=== PATIENT | male | born 1975 | race Caucasian/White ===

== ENCOUNTER 2025-04-27 21:55 | Inpatient (IN) | payer MEDICAID ==
[~2025-04-27] VITALS: Ht 152.4 cm; Wt 51.3 kg
[~2025-04-27 21:55] MED LIST: ALBU18HF2; ATROV IH; BUDE1AMP2; CEPH500T MT; CHLO473M11; FAMO20TA8 PO; HYDR-4001 PO; KEPPSOL GT; LORA-250; METO25TA6 PO; ONDA4TAB50 PO; SALS500T19 PO; SODI100047 MT
[2025-04-27 22:15] VITALS: PULSE 86; RESP 40; O2SAT 98
[2025-04-27] MEDS: IPRATROPIUM BROMIDE (0.02%) 0.5MG/2.5ML NEB HHN ONE (22:30)
[2025-04-27] MEDS: ALBUTEROL (0.083%) 2.5MG/3ML NEB HHN ONE (22:30)
[2025-04-27 22:46] LABS: BASOPHILS % 0.3 % (0.0-2.0); EOSINOPHILS % 3.2 % (0.0-5.0); HEMATOCRIT. 42.2 % (42.0-52.0); HEMOGLOBIN. 13.6 g/dL (14.0-18.0); LYMPHOCYTES % 16.6 % (20.0-50.0); MEAN PLATELET VOLUME 8.2 fl (7.4-10.4); MONOCYTES % 7.4 % (2.0-8.0); NEUTROPHILS % 72.5 % (40.0-76.0); PLATELET 344 x1000/uL (130-400); RED BLOOD CELL COUNT 4.41 mill/uL (4.7-6.1); RED CELL DISTRIBUTION WIDTH 14.4 % (11.6-14.6)
[2025-04-27] MEDS: PROPOFOL 10MG/ML 100ML 100 ML IV ONE (22:46)
[2025-04-27] MEDS: ONDANSETRON HCL 4MG/2ML INJ IV ONE (22:47)
[2025-04-27] MEDS: SODIUM CHLORIDE 0.9% 1,000 ML IV ONE (22:47)
[2025-04-27] MEDS: MORPHINE SULFATE 4 MG/ML INJ (FOR IV/IM USE) IV ONE (22:47)
[2025-04-27] MEDS: SUCCINYLCHOLINE CHLORIDE 200MG/10ML IV ONE (22:48)
[2025-04-27 22:59] LABS: CREATININE 0.5 mg/dL (0.6-1.3); UREA NITROGEN BLOOD 12 mg/dL (9-23)
[2025-04-27 23:01] LABS: TROPONIN I HIGH SENSITIVITY < 4 ng/L (3.0-53)
[2025-04-28] VITALS (81 sets, daily range): BP systolic 89–127; BP diastolic 66–106; PULSE 70–111; RESP 11–33; TEMP 36.4–37.1; O2SAT 97–100
[2025-04-28 00:39] LABS: BG BASE EXCESS -2.0 mmol/L (-2.0-3.0); BG CARBOXYHEMOGLOBIN 0.9 % (0.5-1.5); BG DEOXYHEMOGLOBIN 0.4 % (0.0-5.0); BG FRACTION INSPIRED OXYGEN 70; BG HCO3 ACT 20.3 mmol/L (21.0-28.0); BG METHEMOGLOBIN 0.1 % (0.5-1.5); BG OXYGEN SATURATION 99.6 % (94.0-98.0); BG OXYHEMOGLOBIN 98.6 % (94.0-98.0); BG PCO2 28.9 mmHg (35.0-48.0); BG PEEP (cmH2O) 5.0 cmH2O; BG PH 7.465 (7.350-7.450); BG PO2 203.0 mmHg (83.0-108.0); BG SAMPLE SITE RIGHT RADIAL; BG TOTAL HEMOGLOBIN 15.1 g/dL (13.5-17.5); BG TOTAL RESPIRATORY RATE 20 b/min; BG VENT MODE VENT - P/C; BG VENT RATE 20.0 set
[2025-04-28] MEDS ORDERED: IOHEXOL-300 100 ML BOTTLE ONE (03:30)
[2025-04-28] MEDS: IPRATROPIUM BROMIDE (0.02%) 0.5MG/2.5ML NEB HHN NR (03:46)
[2025-04-28] MEDS: ALBUTEROL (0.083%) 2.5MG/3ML NEB HHN NR (03:46)
[2025-04-28 05:50] LABS: HEMATOCRIT. 38.2 % (42.0-52.0); HEMOGLOBIN. 12.7 g/dL (14.0-18.0); MEAN PLATELET VOLUME 8.3 fl (7.4-10.4); PLATELET 241 x1000/uL (130-400); RED BLOOD CELL COUNT 4.02 mill/uL (4.7-6.1); RED CELL DISTRIBUTION WIDTH 14.1 % (11.6-14.6)
[2025-04-28 06:13] LABS: CREATININE 0.5 mg/dL (0.6-1.3); UREA NITROGEN BLOOD 17 mg/dL (9-23)
[2025-04-28] MEDS: PANTOPRAZOLE 40MG DR TABLET PO SCH (06:14)
[2025-04-28 06:15] LABS: PHOSPHORUS 3.4 mg/dL (2.5-4.9)
[2025-04-28] MEDS: PROPOFOL 10MG/ML 100ML 100 ML IV PRN (06:15)
[2025-04-28] MEDS: PIPERACILLIN/TAZO 3.375G/50ML IV SCH (08:00)
[2025-04-28] MEDS ORDERED: PIPERACILLIN/TAZO 3.375G/50ML IV SCH (09:00)
[2025-04-28] MEDS: ENOXAPARIN 40MG/0.4ML SYR SUBCUT SCH (09:06)
[2025-04-28] MEDS: VANCOMYCIN 1000MG/250ML 250 ML IV SCH (09:06)
[2025-04-28 10:09] LABS: CLARITY URINE CLOUDY (CLEAR); COLOR URINE YELLOW (YELLOW); GLUCOSE URINE NEGATIVE (NEGATIVE); KETONES URINE NEGATIVE (NEGATIVE); LEUKOCYTE ESTERASE URINE NEGATIVE (NEGATIVE); NITRITE URINE NEGATIVE (NEGATIVE); OCCULT BLOOD URINE NEGATIVE (NEGATIVE); PH URINE 7.0 (4.5-8.0); PROTEIN URINE TRACE (NEGATIVE); SPECIFIC GRAVITY URINE 1.058 (1.005-1.030); UROBILINOGEN URINE 1.0 E.U./dL (0.2-1.0)
[2025-04-28] MEDS: SODIUM ZIRCONIUM CYCLOSILICATE 10GM/PACKET GT NR (10:45)
[2025-04-28 11:14] LABS: BACTERIA URINE 4+; MUCUS URINE TRACE /lpf (NONE/TRACE); SQUAMOUS EPITHELIAL CELL URINE 1+ /lpf (RARE/1+)
[2025-04-28 11:15] LABS: RBC URINE NONE SEEN /hpf (0-2)
[2025-04-28 11:32] LABS: BAND% 12.0 % (1.0-6.0); LYMPHOCYTES % MANUAL 2.0 % (20.0-50.0); MONOCYTES % MANUAL 3.0 % (2.0-8.0); NEUTROPHILS % MANUAL 83.0 % (45.0-75.0); PLATELET ESTIMATE NORMAL
[2025-04-28] MEDS ORDERED: PIPERACILLIN/TAZO 3.375G/50ML 50 ML IV SCH (12:00)
[2025-04-28] MEDS: IPRATROPIUM/ALBUTEROL 0.5-3(2.5)MG/3ML NEB HHN SCH (14:54)
[2025-04-28] MEDS: VANCOMYCIN 750MG PREMIX 150 ML IV SCH (21:21)
[2025-04-29] VITALS (68 sets, daily range): BP systolic 92–142; BP diastolic 42–106; PULSE 97–128; RESP 12–27; TEMP 36.7–36.9; O2SAT 94–100
[2025-04-29 05:23] LABS: BASOPHILS % 0.5 % (0.0-2.0); EOSINOPHILS % 1.2 % (0.0-5.0); HEMATOCRIT. 33.3 % (42.0-52.0); HEMOGLOBIN. 11.1 g/dL (14.0-18.0); LYMPHOCYTES % 8.1 % (20.0-50.0); MEAN PLATELET VOLUME 8.7 fl (7.4-10.4); MONOCYTES % 6.8 % (2.0-8.0); NEUTROPHILS % 83.4 % (40.0-76.0); PLATELET 256 x1000/uL (130-400); RED BLOOD CELL COUNT 3.52 mill/uL (4.7-6.1); RED CELL DISTRIBUTION WIDTH 14.7 % (11.6-14.6)
[2025-04-29 05:41] LABS: CREATININE 0.5 mg/dL (0.6-1.3); TRIGLYCERIDE 92 mg/dL (0-150); UREA NITROGEN BLOOD 11 mg/dL (9-23)
[2025-04-29] MEDS: PROPOFOL 10MG/ML 100ML 100 ML IV PRN (06:11)
[2025-04-29] MEDS ORDERED: LIDOCAINE HCL/EPINEPHRINE 1%-EPI 1:100,000 20ML VIAL ONE (07:31)
[2025-04-29] MEDS ORDERED: ROCURONIUM BROMIDE 10MG/ML VIAL 5ML IV ONE (08:57)
[2025-04-29] MEDS ORDERED: PROPOFOL 200MG/20ML VIAL IV ONE (08:58)
[2025-04-29] MEDS ORDERED: FENTANYL CITRATE/PF 50MCG/ML 2ML VIAL ONE (08:58)
[2025-04-29] MEDS: KCL 20MEQ/100ML PREMIX 100 ML IV NR (09:00)
[2025-04-29] MEDS ORDERED: ONDANSETRON HCL 4MG/2ML INJ ONE (13:50)
[2025-04-29] MEDS ORDERED: NALOXONE HCL 0.4MG/ML VIAL IV PRN (20:30)
[2025-04-30] VITALS (104 sets, daily range): BP systolic 103–142; BP diastolic 71–99; PULSE 71–128; RESP 12–33; TEMP 36.5–38.4; O2SAT 91–100
[2025-04-30] MEDS: HYDROMORPHONE HCL/PF 2MG/ML INJ IV PRN (01:33)
[2025-04-30 05:47] LABS: BASOPHILS % 0.6 % (0.0-2.0); EOSINOPHILS % 3.1 % (0.0-5.0); HEMATOCRIT. 32.5 % (42.0-52.0); HEMOGLOBIN. 10.9 g/dL (14.0-18.0); LYMPHOCYTES % 9.2 % (20.0-50.0); MEAN PLATELET VOLUME 8.1 fl (7.4-10.4); MONOCYTES % 5.4 % (2.0-8.0); NEUTROPHILS % 81.7 % (40.0-76.0); PLATELET 289 x1000/uL (130-400); RED BLOOD CELL COUNT 3.44 mill/uL (4.7-6.1); RED CELL DISTRIBUTION WIDTH 15.1 % (11.6-14.6)
[2025-04-30 05:53] LABS: CREATININE 0.5 mg/dL (0.6-1.3); UREA NITROGEN BLOOD 10 mg/dL (9-23)
[2025-04-30 05:55] LABS: PHOSPHORUS 3.3 mg/dL (2.5-4.9)
[2025-04-30] MEDS ORDERED: DEXTROSE 50% WATER 50ML SYRINGE IV PRN (06:15)
[2025-04-30] MEDS: POTASSIUM CHLORIDE 20MEQ/PACKET GT NR (06:25)
[2025-04-30] MEDS ORDERED: INSULIN LISPRO 100 UNITS/ML SUBCUT SCH (07:00)
[2025-04-30] MEDS: ACETAMINOPHEN 650MG/20.3ML UDC GT PRN (10:57)
[2025-04-30] MEDS: BLOOD SUGAR DIAGNOSTIC STRIP TEST SCH (11:14)
[2025-04-30] MEDS: INSULIN LISPRO 100 UNITS/ML SUBCUT SCH (11:31)
[2025-04-30] MEDS: METHYLPREDNISOLONE SOD SUCC 40MG/ML (ACT-O-VIAL) IV SCH (14:12)
[2025-04-30] MEDS: ACETYLCYSTEINE 200MG/ML 20% VIAL 4ML INH SCH (16:52)
[2025-04-30] MEDS: PROPOFOL 10MG/ML 100ML 100 ML IV PRN (18:35)
[2025-05-01] VITALS (99 sets, daily range): BP systolic 99–149; BP diastolic 68–101; PULSE 78–123; RESP 13–33; TEMP 36.6–37.3; O2SAT 87–100
[2025-05-01 05:31] LABS: HEMATOCRIT. 30.0 % (42.0-52.0); HEMOGLOBIN. 10.2 g/dL (14.0-18.0); MEAN PLATELET VOLUME 8.2 fl (7.4-10.4); PLATELET 291 x1000/uL (130-400); RED BLOOD CELL COUNT 3.19 mill/uL (4.7-6.1); RED CELL DISTRIBUTION WIDTH 14.6 % (11.6-14.6)
[2025-05-01 05:43] LABS: CREATININE 0.4 mg/dL (0.6-1.3); UREA NITROGEN BLOOD 10 mg/dL (9-23)
[2025-05-01 05:45] LABS: PHOSPHORUS 2.9 mg/dL (2.5-4.9)
[2025-05-01] MEDS ORDERED: PROPOFOL 10MG/ML 100ML 100 ML IV PRN (05:45)
[2025-05-01 13:48] LABS: BG BASE EXCESS -1.3 mmol/L (-2.0-3.0); BG CARBOXYHEMOGLOBIN 0.3 % (0.5-1.5); BG DEOXYHEMOGLOBIN 0.7 % (0.0-5.0); BG FRACTION INSPIRED OXYGEN 40; BG HCO3 ACT 21.7 mmol/L (21.0-28.0); BG METHEMOGLOBIN 0.3 % (0.5-1.5); BG OXYGEN SATURATION 99.3 % (94.0-98.0); BG OXYHEMOGLOBIN 98.7 % (94.0-98.0); BG PCO2 31.0 mmHg (35.0-48.0); BG PEEP (cmH2O) 5.0 cmH2O; BG PH 7.463 (7.350-7.450); BG PO2 148.6 mmHg (83.0-108.0); BG SAMPLE SITE RIGHT RADIAL; BG TOTAL HEMOGLOBIN 11.9 g/dL (13.5-17.5); BG VENT MODE VENT - CPAP
[2025-05-01] MEDS: MEROPENEM 1G/100ML 100 ML IV SCH (14:17)
[2025-05-01] MEDS ORDERED: NALOXONE HCL 0.4MG/ML VIAL IV PRN (16:45)
[2025-05-01] MEDS: GUAIFENESIN 200MG/10ML SUGAR FREE UDC PO SCH (18:00)
[2025-05-01] MEDS: IPRATROPIUM/ALBUTEROL 0.5-3(2.5)MG/3ML NEB HHN SCH (20:00)
[2025-05-01 22:02] LABS: LYMPHOCYTES % MANUAL 4.0 % (20.0-50.0); MONOCYTES % MANUAL 4.0 % (2.0-8.0); NEUTROPHILS % MANUAL 92.0 % (45.0-75.0); PLATELET ESTIMATE NORMAL
[2025-05-02] VITALS (22 sets, daily range): BP systolic 106–125; BP diastolic 70–94; PULSE 86–108; RESP 17–31; TEMP 36.5–36.8; O2SAT 9–100
[2025-05-02 12:04] LABS: BASOPHILS % 0.3 % (0.0-2.0); EOSINOPHILS % 2.4 % (0.0-5.0); HEMATOCRIT. 33.9 % (42.0-52.0); HEMOGLOBIN. 11.3 g/dL (14.0-18.0); LYMPHOCYTES % 9.2 % (20.0-50.0); MEAN PLATELET VOLUME 8.1 fl (7.4-10.4); MONOCYTES % 10.0 % (2.0-8.0); NEUTROPHILS % 78.1 % (40.0-76.0); PLATELET 322 x1000/uL (130-400); RED BLOOD CELL COUNT 3.63 mill/uL (4.7-6.1); RED CELL DISTRIBUTION WIDTH 14.6 % (11.6-14.6)
[2025-05-02 12:24] LABS: CREATININE 0.4 mg/dL (0.6-1.3); UREA NITROGEN BLOOD 13 mg/dL (9-23)
[2025-05-02] MEDS: LIDOCAINE HCL 1% 20ML VIAL INFIL NR (16:04)
[2025-05-03] VITALS (18 sets, daily range): BP systolic 100–126; BP diastolic 56–86; PULSE 100–133; RESP 22–35; TEMP 37.2–37.9; O2SAT 93–100
[2025-05-03 07:22] LABS: CREATININE 0.4 mg/dL (0.6-1.3); UREA NITROGEN BLOOD 18 mg/dL (9-23)
[2025-05-03 07:34] LABS: BASOPHILS % 0.5 % (0.0-2.0); EOSINOPHILS % 4.3 % (0.0-5.0); HEMATOCRIT. 34.7 % (42.0-52.0); HEMOGLOBIN. 11.9 g/dL (14.0-18.0); LYMPHOCYTES % 7.6 % (20.0-50.0); MEAN PLATELET VOLUME 8.1 fl (7.4-10.4); MONOCYTES % 10.4 % (2.0-8.0); NEUTROPHILS % 77.2 % (40.0-76.0); PLATELET 335 x1000/uL (130-400); RED BLOOD CELL COUNT 3.74 mill/uL (4.7-6.1); RED CELL DISTRIBUTION WIDTH 14.6 % (11.6-14.6)
[2025-05-03 11:09] LABS: BG BASE EXCESS -1.0 mmol/L (-2.0-3.0); BG CARBOXYHEMOGLOBIN 0.6 % (0.5-1.5); BG DEOXYHEMOGLOBIN 1.0 % (0.0-5.0); BG FLOW(L/min) 10.00 L/min; BG FRACTION INSPIRED OXYGEN 40; BG HCO3 ACT 21.1 mmol/L (21.0-28.0); BG METHEMOGLOBIN 0.1 % (0.5-1.5); BG OXYGEN SATURATION 99.0 % (94.0-98.0); BG OXYHEMOGLOBIN 98.3 % (94.0-98.0); BG PCO2 28.0 mmHg (35.0-48.0); BG PH 7.495 (7.350-7.450); BG PO2 134.5 mmHg (83.0-108.0); BG SAMPLE SITE RIGHT BRACHIAL; BG TOTAL HEMOGLOBIN 13.1 g/dL (13.5-17.5); BG VENT MODE T PIECE
[2025-05-03] MEDS ORDERED: SODIUM CHLORIDE 0.9% 500 ML IV NR (15:30)
[2025-05-03] MEDS ORDERED: LEVETIRACETAM 1,000MG in NACL 100ML PREMIX IV SCH (21:00)
[2025-05-03] MEDS: LEVETIRACETAM 1000MG PREMIX 100 ML IV SCH (21:16)
[2025-05-03] MEDS: SULFAMETHOXAZOLE/TRIMETHOPRIM 200-40 MG/5ML 5ML ORAL SYR GT SCH (21:37)
[2025-05-04] VITALS (19 sets, daily range): BP systolic 83–130; BP diastolic 54–85; PULSE 79–120; RESP 16–29; TEMP 31.8–37.6; O2SAT 93–100
[2025-05-04] MEDS ORDERED: SODIUM CHLORIDE 0.9% 500 ML IV NR (15:30)
[2025-05-05] VITALS (18 sets, daily range): BP systolic 98–127; BP diastolic 65–77; PULSE 83–114; RESP 15–34; TEMP 36.4–37.9; O2SAT 92–100
[2025-05-06] VITALS (17 sets, daily range): BP systolic 104–126; BP diastolic 61–80; PULSE 88–120; RESP 17–36; TEMP 36.4–37.4; O2SAT 96–100
[2025-05-06 07:28] LABS: BASOPHILS % 0.6 % (0.0-2.0); EOSINOPHILS % 2.4 % (0.0-5.0); HEMATOCRIT. 35.3 % (42.0-52.0); HEMOGLOBIN. 11.9 g/dL (14.0-18.0); LYMPHOCYTES % 12.2 % (20.0-50.0); MEAN PLATELET VOLUME 7.8 fl (7.4-10.4); MONOCYTES % 11.8 % (2.0-8.0); NEUTROPHILS % 73.0 % (40.0-76.0); PLATELET 360 x1000/uL (130-400); RED BLOOD CELL COUNT 3.79 mill/uL (4.7-6.1); RED CELL DISTRIBUTION WIDTH 14.8 % (11.6-14.6)
[2025-05-06 07:47] LABS: CREATININE 0.6 mg/dL (0.6-1.3)
[2025-05-06 07:48] LABS: UREA NITROGEN BLOOD 12 mg/dL (9-23)
[2025-05-06] MEDS ORDERED: SULF1TAB47 MT (11:16)
[2025-05-06 15:12] LABS: TRIGLYCERIDE 105.0 mg/dL (0-150)
[2025-05-06 15:13] LABS: LDL CHOLESTEROL 59.0 mg/dL (5-100)
[2025-05-07] VITALS (16 sets, daily range): BP systolic 109–133; BP diastolic 69–81; PULSE 84–108; RESP 18–25; TEMP 37–37.7; O2SAT 93–100
[2025-05-07 06:03] LABS: CREATININE 0.6 mg/dL (0.6-1.3); UREA NITROGEN BLOOD 9 mg/dL (9-23)
[2025-05-07 10:15] LABS: BASOPHILS % 0.5 % (0.0-2.0); EOSINOPHILS % 3.9 % (0.0-5.0); HEMATOCRIT. 36.3 % (42.0-52.0); HEMOGLOBIN. 12.1 g/dL (14.0-18.0); LYMPHOCYTES % 16.6 % (20.0-50.0); MEAN PLATELET VOLUME 7.9 fl (7.4-10.4); MONOCYTES % 10.6 % (2.0-8.0); NEUTROPHILS % 68.4 % (40.0-76.0); PLATELET 358 x1000/uL (130-400); RED BLOOD CELL COUNT 3.88 mill/uL (4.7-6.1); RED CELL DISTRIBUTION WIDTH 14.8 % (11.6-14.6)
== END 2025-05-07 17:55 | DRG 710 ==
LOC: ER 21:55 → MICUSO 23:57 → EDBEDREQTM 04-28 00:11 → EDBEDREQ 04-28 00:11 → ENRESERV 04-28 03:26 → 5EST 05-02 02:02
PROVIDERS: ADMIT Family Medicine Adult Medicine; ATTEND Family Medicine Adult Medicine
PROC: 0BH17EZ Insertion of Endotracheal Airway into Trachea, Via Natural or Artificial Opening (ICD-10-PCS; 2025-04-27)
PROC: 0W9B30Z Drainage of Left Pleural Cavity with Drainage Device, Percutaneous Approach (ICD-10-PCS; 2025-04-27)
PROC: 5A1945Z Respiratory Ventilation, 24-96 Consecutive Hours (ICD-10-PCS; 2025-04-28)
PROC: 0BW10FZ Revision of Tracheostomy Device in Trachea, Open Approach (ICD-10-PCS; principal; 2025-04-29)
DX: A41.51 Sepsis due to Escherichia coli [E. coli] (principal); J93.0 Spontaneous tension pneumothorax; Z99.11 Dependence on respirator [ventilator] status; J96.21 Acute and chronic respiratory failure with hypoxia; G93.49 Other encephalopathy; R13.10 Dysphagia, unspecified; J18.9 Pneumonia, unspecified organism; J95.03 Malfunction of tracheostomy stoma; N39.0 Urinary tract infection, site not specified; I10 Essential (primary) hypertension; D53.9 Nutritional anemia, unspecified; G40.909 Epilepsy, unspecified, not intractable, without status epilepticus; J98.2 Interstitial emphysema; E87.1 Hypo-osmolality and hyponatremia; E87.5 Hyperkalemia; K21.9 Gastro-esophageal reflux disease without esophagitis; Y83.8 Other surgical procedures as the cause of abnormal reaction of the patient, or of later complication, without mention of misadventure at the time of the procedure; E87.6 Hypokalemia; Z16.12 Extended spectrum beta lactamase (ESBL) resistance; J98.19 Other pulmonary collapse; Y92.89 Other specified places as the place of occurrence of the external cause; Z86.73 Personal history of transient ischemic attack (TIA), and cerebral infarction without residual deficits; Z55.6 Problems related to health literacy
CPT/HCPCS: 31500; 31720; 36415; 36600; 71045; 71260; 80048; 80061; 80202; 81003; 82375; 82533; 82805; 82962; 83735; 83930; 84100; 84132; 84145; 84443; 84478; 84484; 85025; 87070; 87077; 87186; 93005; 94003; 94070; 94640; 94664; 98960; 99291; J1171; J1650; J1815; J1953; J2003; J2004; J2185; J2270; J2405; J2543; J2704; J2919; J3010; J3373; J3480; J3490; J7030; J7608; Q9967; A4217